=== PATIENT | female | born 1985 | race Caucasian/White ===

== ENCOUNTER 2019-08-11 14:15 | Emergency (ER) | payer OTHER ==
[~2019-08-11] VITALS: Ht 172.7 cm; Wt 81.7 kg
[2019-08-11] MEDS ORDERED: PERCOCET 5-3251 EACH PO (17:10)
[2019-08-11] MEDS ORDERED: FLAGYL500 MG PO (17:23)
[2019-08-11] MEDS ORDERED: LEVAQUIN750 MG PO (17:23)
[2019-08-11] MEDS ORDERED: ONDANSETRON ODT8 MG PO (17:23)
== END 2019-08-11 19:21 | disposition home or self-care (01) ==
LOC: ED 14:15
DX: K57.32 Diverticulitis of large intestine without perforation or abscess without bleeding (principal)
CPT/HCPCS: 74177; 80053; 81001; 83690; 84702; 85025; 96361; 96367; 96375; 99284-25; J1956; J2405; J7030; Q9967

== ENCOUNTER 2019-08-24 07:51 | Emergency (ER) | payer OTHER ==
[~2019-08-24] VITALS: Ht 172.7 cm; Wt 81.7 kg
[~2019-08-24 07:51] MED LIST: FLAGYL500 MG PO; LEVAQUIN750 MG PO; ONDANSETRON ODT8 MG PO; PERCOCET 5-3251 EACH PO
--- OUTSIDE RECORDS SUMMARY | 2019-08-24 07:54 | XMS ---
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 - 2 Visits in 30 Days CARE PROVIDERS There are no care providers on record at this time. Tamia has no Care Guidelines for this patient. [facility] (12 MO.) [facility] NOTE: Visits indicate total known visits. ED/C VISIT TRACKING (12 MO.) [facility] COMPLAINT: - VOMITING, ABDOMINAL PAIN 08/11/2019 14:16 [facility] TYPE: Emergency COMPLAINT: - DIVERTICULITIS FLARE-UP DIAGNOSES: - Unspecified abdominal pain - Diverticulitis of large intestine without perforation or absc INPATIENT VISIT TRACKING (12 MO.) No inpatient visits to display in this time frame [email or web address]
[2019-08-24] MEDS ORDERED: DICYCLOMINE HCL20 MG PO (11:14)
== END 2019-08-24 11:26 | disposition home or self-care (01) ==
LOC: ED 07:51
DX: K57.90 Diverticulosis of intestine, part unspecified, without perforation or abscess without bleeding (principal); Z88.6 Allergy status to analgesic agent
CPT/HCPCS: 80053; 81001; 83690; 84703; 85025; 96361; 96374; 96375; 99284-25; J1170; J2405; J7030